=== PATIENT | male | born 1935 | race Caucasian/White ===

== ENCOUNTER → 2019-02-12 | Outpatient (CLI) | payer MEDICARE ==
--- NOTE | 2019-02-12 13:48 | Diagnostic Imaging Report ---
INDICATION: Cough. TIME OF EXAM: 12:57 p.m. COMPARISON: No prior studies are available for comparison. FINDINGS: The heart is mildly enlarged. Lungs are hyperinflated consistent with COPD. No infiltrates are detected. No effusion or pneumothorax is detected. IMPRESSION: COPD. No other significant abnormality is detected. Dictated by: Dictated on workstation # [id number]
== END ==
LOC: RAD 12:44
PROVIDERS: ATTEND Family Medicine
DX: J44.9 Chronic obstructive pulmonary disease, unspecified (principal)
CPT/HCPCS: 71046

== ENCOUNTER → 2019-03-13 | Outpatient (CLI) | payer MEDICARE ==
[~2019-03-13] MED LIST: CATHETER FLUSH 10 ML SYR IV PRN; HOLD METFORMIN - RECEIVED CONTRAST 20 ML VIAL IV SCH; IOHEXOL 350 MG/ML 100 ML (OMNIPAQUE 350) VIAL IV ONE; NS 100 ML (IVPB) BAG IV ONE
[2019-03-13 12:14] LABS: BUN/CREATININE RATIO 27; CREATININE SERUM 0.83 MG/DL (0.60-1.30); GFR ESTIMATED > 60
--- NOTE | 2019-03-13 13:25 | Diagnostic Imaging Report ---
PROCEDURE: CT chest with contrast only. TECHNIQUE: Multiple contiguous axial images were obtained through the chest after administration of intravenous contrast. Auto Exposure Controls were utilized during the CT exam to meet ALARA standards for radiation dose reduction. INDICATION: Hypoxia and COPD. COMPARISON: No prior CT chest studies are available for comparison. FINDINGS: Although CT angiography protocol was not utilized, there is a filling defect in a portion of the right main pulmonary artery with filling defect extending into right lower lobe pulmonary artery as well as a segmental pulmonary artery to the right lower lobe consistent with pulmonary emboli. No other pulmonary emboli are detected. In particular, no left-sided emboli are detected. Pulmonary arteries are somewhat dilated. The thoracic aorta is heavily calcified but non-aneurysmal. There is no dissection. No pericardial or pleural fluid is seen. There is a nodule in the left lobe of the thyroid gland. No axillary lymphadenopathy is detected. No mediastinal or hilar lymphadenopathy is detected. Pulmonary parenchymal evaluation does demonstrate centrilobular emphysematous changes. There are some basilar interstitial changes. No parenchymal consolidation or mass is identified. IMPRESSION: 1. Findings consistent with pulmonary emboli involving the right main pulmonary artery as well as lobar and segmental branches of the right lower lobe. There is some pulmonary arterial dilatation suggestive of pulmonary arterial hypertension. 2. Centrilobular emphysematous changes. No parenchymal mass or lymphadenopathy is detected. Dictated by: Dictated on workstation # [id number]
== END ==
LOC: RAD 11:22
PROVIDERS: ATTEND Nurse Practitioner Family
DX: J43.9 Emphysema, unspecified (principal); J98.4 Other disorders of lung; R91.8 Other nonspecific abnormal finding of lung field; R09.02 Hypoxemia
CPT/HCPCS: 36415; 71260; 82565; 84520

== ENCOUNTER → 2019-05-06 | Outpatient (CLI) | payer MEDICARE ==
[~2019-05-06] MED LIST changes: -CATHETER FLUSH 10 ML SYR IV PRN; -HOLD METFORMIN - RECEIVED CONTRAST 20 ML VIAL IV SCH; -IOHEXOL 350 MG/ML 100 ML (OMNIPAQUE 350) VIAL IV ONE; -NS 100 ML (IVPB) BAG IV ONE; +RT-ALBUTEROL SULF 2.5 MG/3 ML PRE-MIX VIAL INH ONE
== END ==
LOC: RT 10:04
PROVIDERS: ATTEND Nurse Practitioner Family
DX: J44.9 Chronic obstructive pulmonary disease, unspecified (principal); J98.4 Other disorders of lung
CPT/HCPCS: 94060; 94726; 94729

== ENCOUNTER → 2019-07-28 | Outpatient (CLI) | payer MEDICARE ==
--- NOTE | 2019-07-28 10:55 | Diagnostic Imaging Report ---
INDICATION: COPD. COMPARISON: 02/12/2019. FINDINGS: There is rather severe obstructive lung disease with flattening of diaphragm. No acute infiltrates have developed. No pneumothorax or pleural effusion. Moderate cardiomegaly. 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 No bony abnormalities. IMPRESSION: 1. Obstructive pulmonary disease without acute change. 2. Continued cardiomegaly with atherosclerotic changes of the aorta. Dictated by: Dictated on workstation # [id number]
== END ==
LOC: RAD 09:59
PROVIDERS: ATTEND Nurse Practitioner Family
DX: J44.9 Chronic obstructive pulmonary disease, unspecified (principal); I70.0 Atherosclerosis of aorta
CPT/HCPCS: 71046

== ENCOUNTER → 2019-08-25 | Outpatient (CLI) | payer MEDICARE | LOC: CARD 12:49 | PROVIDERS: ATTEND Internal Medicine Cardiovascular Disease | DX: I07.1 Rheumatic tricuspid insufficiency (principal); J44.9 Chronic obstructive pulmonary disease, unspecified; I25.10 Atherosclerotic heart disease of native coronary artery without angina pectoris; I10 Essential (primary) hypertension | CPT/HCPCS: 93306 ==

== ENCOUNTER → 2019-08-26 | Outpatient (CLI) | payer MEDICARE ==
[~2019-08-26] VITALS: Ht 180 cm; Wt 80.0 kg
[~2019-08-26] MED LIST changes: +CATHETER FLUSH 10 ML SYR IV PRN; +REGADENOSON 0.4 MG/5 ML SYR (LEXISCAN) IV ONE; -RT-ALBUTEROL SULF 2.5 MG/3 ML PRE-MIX VIAL INH ONE
[2019-08-26 09:15] VITALS: BP 140/81
[2019-08-26 09:25] VITALS: BP 137/79
--- NOTE | 2019-08-26 14:54 | Cardiology Stress Test Report ---
Stress Test Report Date of Procedure/Referring: Date of Procedure: Aug 26, 2019 PCP John He MD Admitting Physician Tere Linn MD Indications: Coronary artery disease Baseline Heart Rate: 71 Baseline Blood Pressure: Blood Pressure Systolic: 137 Blood Pressure Diastolic: 79 Baseline EKG: Baseline EKG: normal sinus rhythm Summary: Patient received 0.4 mg Lexiscan for stress test, ECG, heart rate and blood pressure were monitored continuously. Resting and stress dose of radio tracer were injected, imaging was acquired and reviewed in short axis, horizontal long axis and vertical long axis views. Conclusion: 1. Patient tolerated Lexiscan well. 2. Frequent atrial premature contractions and short runs of atrial tachycardia noted during test. 3. No ischemia or infarction on SPECT images. SSS is 1, SDS 1 4. Normal left ventricular size and systolic function calculated ejection fraction 51 percent JOHN HE MD Aug 26, 2019 14:54
== END ==
LOC: CARD 07:45
PROVIDERS: ATTEND Internal Medicine Cardiovascular Disease
DX: I49.1 Atrial premature depolarization (principal); I47.1 Supraventricular tachycardia; J44.9 Chronic obstructive pulmonary disease, unspecified; I25.10 Atherosclerotic heart disease of native coronary artery without angina pectoris; I10 Essential (primary) hypertension
CPT/HCPCS: 78452; 93017

== ENCOUNTER → 2019-08-31 | Outpatient (CLI) | payer MEDICARE ==
--- NOTE | 2019-08-31 16:37 | Diagnostic Imaging Report ---
INDICATION: Dyspnea. Bilateral lower extremity venous Doppler study was performed in the routine fashion with color flow Doppler and waveform analysis. FINDINGS: The common femoral veins, superficial femoral veins, popliteal veins and visualized portion of the tibial veins show normal compressibility and venous flow patterns. There is normal augmentation. IMPRESSION: No evidence of deep vein thrombosis in the major veins of both legs. Dictated by: Dictated on workstation # [id number]
== END ==
LOC: RAD 14:44
PROVIDERS: ATTEND Physician Assistant
DX: I26.99 Other pulmonary embolism without acute cor pulmonale (principal); I25.10 Atherosclerotic heart disease of native coronary artery without angina pectoris; I10 Essential (primary) hypertension
CPT/HCPCS: 93970

== ENCOUNTER → 2020-02-10 | Outpatient (CLI) | payer MEDICARE ==
[~2020-02-10] MED LIST changes: +HOLD METFORMIN - RECEIVED CONTRAST 20 ML VIAL IV SCH; +IOHEXOL 350 MG/ML 100 ML (OMNIPAQUE 350) VIAL IV ONE; +NS 100 ML (IVPB) BAG IV ONE; -REGADENOSON 0.4 MG/5 ML SYR (LEXISCAN) IV ONE
[2020-02-10 13:19] LABS: CREATININE SERUM 0.77 MG/DL (0.60-1.30); GFR ESTIMATED > 60
[2020-02-10 13:20] LABS: BUN/CREATININE RATIO 23
--- NOTE | 2020-02-10 14:13 | Diagnostic Imaging Report ---
PROCEDURE: CT abdomen and pelvis with and without contrast. TECHNIQUE: Precontrast acquisitions were acquired through the abdomen and pelvis. Multiple contiguous axial images were obtained through the abdomen and pelvis after the administration of intravenous contrast. Auto Exposure Controls were utilized during the CT exam to meet ALARA standards for radiation dose reduction. INDICATION: Abdominal pain and hematuria. Patient has prior history of bladder carcinoma. No prior studies are available for comparison. FINDINGS: The lung bases are clear. No discrete liver mass is identified. Gallbladder is surgically absent. No biliary duct dilatation is seen. The pancreas and spleen are unremarkable. No adrenal mass is identified. No renal calculi are identified. Cortical low density right kidney and measures 12 mm and suggestive of a cyst. No hydronephrosis is identified. The ureters appear to be normal caliber. There is a large amount of artifact in the pelvis from patient's right hip prosthesis. The precontrast images do suggest a hyperdensity in the bladder near the midline measuring 13 mm. This is suspicious for a bladder calculus. Aorta and iliac vessels are heavily calcified but non-aneurysmal. Bowel loops appear to be nonobstructive. There is a large amount of stool throughout the colon. There is extensive diverticulosis throughout the colon but no evidence of acute diverticulitis. IMPRESSION: 1. Right renal cyst. 2. Hyperdensity in the bladder on precontrast images suggest a bladder calculus. Correlation with cystoscopy would be recommended. No definite renal or ureteral calculi or evidence of hydronephrosis is seen. 3. Moderate stool throughout the colon consistent with constipation. There is also uncomplicated diverticulosis. Dictated by: Dictated on workstation # [id number]
== END ==
LOC: RAD 13:45
PROVIDERS: ATTEND Family Medicine
DX: C67.9 Malignant neoplasm of bladder, unspecified (principal); N28.1 Cyst of kidney, acquired; Z90.49 Acquired absence of other specified parts of digestive tract
CPT/HCPCS: 36415; 74178; 82565; 84520

== ENCOUNTER → 2020-02-12 | Outpatient (CLI) | payer MEDICARE ==
[~2020-02-12] MED LIST changes: -CATHETER FLUSH 10 ML SYR IV PRN; +GADOBUTROL 7.5 MMOL/7.5 ML (GADAVIST) VIAL IV ONE; -HOLD METFORMIN - RECEIVED CONTRAST 20 ML VIAL IV SCH; -IOHEXOL 350 MG/ML 100 ML (OMNIPAQUE 350) VIAL IV ONE; -NS 100 ML (IVPB) BAG IV ONE
--- NOTE | 2020-02-12 16:35 | Diagnostic Imaging Report ---
PROCEDURE: MR imaging of the brain with and without contrast. TECHNIQUE: Multiplanar, multisequence MR imaging of the brain was performed with and without contrast. INDICATION: Dizziness and visual problems. COMPARISON: No prior studies are available for comparison. FINDINGS: No diffusion restriction is identified to suggest acute ischemia. The normal expected flow-voids within the carotid siphons are seen. The ventricles and sulci are prominent, consistent with cerebral atrophy. There are moderate periventricular and subcortical white matter changes, consistent with chronic microvascular ischemia. No acute intra-axial or extra-axial hemorrhage is detected. No abnormal enhancement following contrast administration is identified. The corpus callosum is unremarkable. The sella and parasellar structures are unremarkable. IMPRESSION: Cerebral atrophy and changes of chronic microvascular ischemia. No acute intracranial process is detected. Dictated on workstation # [id number]
== END ==
LOC: RAD 14:23
PROVIDERS: ATTEND Family Medicine
DX: G31.9 Degenerative disease of nervous system, unspecified (principal); C67.9 Malignant neoplasm of bladder, unspecified
CPT/HCPCS: 70553